=== PATIENT | male | born 1995 | race Caucasian/White ===

== ENCOUNTER 2016-05-11 21:08 | Emergency (ER) | payer OTHER ==
[~2016-05-11] VITALS: Ht 193 cm; Wt 96.4 kg
[2016-05-11 21:10] VITALS: TEMP 37.3; Ht 193 cm; Wt 96.4 kg
--- NOTE | 2016-05-11 21:22 | EMERGENCY ROOM VISIT NOTE ---
ED Visit Note First contact with patient: 21:14 CHIEF COMPLAINT: Ankle pain HISTORY OF PRESENT ILLNESS: This 21-year-old male patient presents to the emergency department ambulatory after sustaining an injury to the right ankle with a twisting, inversion motion when he was playing basketball earlier today. Complains of marked swelling and pain. The patient complains of pain along the outside of the ankle. The patient does not have pain of the foot. The patient rates the pain as sharp and 6/10. There was and audible pop. The patient is non-able to bear weight on the foot. Constant pain, worse with movement, weight bearing, and the dependent position. No knee pain, the patient is able to move their toes. No numbness or weakness of the foot, no laceration. The patient has not had a previous injury to this ankle. The patient has taken nothing for the pain. The patient denies any other injury. REVIEW OF SYSTEMS: A 6 system review of systems was completed with positives and pertinent negatives listed in the HPI. ALLERGIES: No known allergies MEDICATIONS: None PMH: None SOCIAL HISTORY: The patient is a student PHYSICAL EXAM: Vital Signs: Reviewed Nurse's notes, vital signs stable. GENERAL : This is a 21-year-old male, no acute distress, but appears in pain, well- developed, well-nourished. MENTAL STATUS: Alert, oriented to person place and time, and cooperative. MUSCULOSKELETAL: The right ankle is swollen and tender over the lateral malleolus, but the skin is intact and there is no ligamentous instability. There is no fifth metatarsal tenderness. There is no tenderness over the rest of the foot. There is no calf or tibia/fibular tenderness. There is no visual deformity. The foot and toes are warm and well-perfused. Dorsalis pedis pulse 2+. Sensation to pain and light touch is intact. Capillary refill less than 2 seconds. EMERGENCY DEPARTMENT COURSE: I examined the patient. He declined pain medication. X-rays of the right ankle were reviewed by myself and read by radiology and reveal avulsion fracture to the distal fibula. A posterior short leg Ortho-Glass splint was applied to the ankle under my direction and the position was satisfactory. Neurovascular status was rechecked and intact. The patient was instructed on the use of crutches, stating he has his own. He should contact orthopedics tomorrow to schedule a follow-up appointment for further evaluation and management. He should return to the ER with any worsening symptoms. The patient was discharged home in good condition. RIGHT ANKLE MIN 3 VIEWS ROUTINE CLINICAL HISTORY: right ankle pain Right pain COMPARISON: None. DISCUSSION: Tiny avulsion adjacent to the tip of the distal fibula. This is reasonably well corticated and may be old. Lateral soft tissue swelling. Ankle mortise is aligned appropriately. Subtalar joint is intact. Lead IMPRESSION: Soft tissue edema over the lateral malleolus. Small avulsion inferior to the tip of the distal fibula felt to be old Current/Historical Medications Scheduled Multivitamin (Multivitamin), 1 TAB PO DAILY Allergies Coded Allergies: No Known Allergies (Unverified , 05/11/16) Vital Signs Date Time Temp Pulse Resp B/P Pulse Ox O2 Delivery O2 Flow Rate FiO2 05/11/16 22:50 75 18 180/73 96 05/11/16 21:10 37.3 104 18 149/77 91 Room Air Departure Information Impression Primary Impression: Fracture of distal end of right fibula Additional Impression: Ankle sprain Dispostion Home / Self-Care Condition GOOD Referrals No Doctor, Assigned (PCP) Harris Kan M.D. Patient Instructions [facility] [place] Additional Instructions Ibuprofen 600 mg every 6-8 hours or moderate pain Wear the splint until seen by orthopedics, do neck the splint wet Crutches and do not bear weight on the right leg until seen by orthopedics Contact orthopedics first thing in the morning to schedule a follow-up appointment for further evaluation and management Return with any worsening symptoms Problem Qualifiers Primary Impression: Fracture of distal end of right fibula Encounter type: initial encounter Fracture type: closed Additional Impression: Ankle sprain Encounter type: initial encounter Laterality: right
[2016-05-11] MEDS ORDERED: MULT-506 PO (21:41)
--- NOTE | 2016-05-11 21:44 | DIAGNOSTIC IMAGING REPORT ---
RIGHT ANKLE MIN 3 VIEWS ROUTINE CLINICAL HISTORY: right ankle pain Right pain COMPARISON: None. DISCUSSION: Tiny avulsion adjacent to the tip of the distal fibula. This is reasonably well corticated and may be old. Lateral soft tissue swelling. Ankle mortise is aligned appropriately. Subtalar joint is intact. Lead IMPRESSION: Soft tissue edema over the lateral malleolus. Small avulsion inferior to the tip of the distal fibula felt to be old Electronically signed by: Eron Lee M.D. 05/11/2016 9:42 PM Dictated Date/Time: 05/11/2016 9:41 PM
[2016-05-11 22:50] VITALS: BP 180/73; PULSE 75; O2SAT 96
== END 2016-05-11 22:50 | disposition home or self-care (01) ==
LOC: C.EDB 21:09 → C.EDD 22:50
DX: S93.401A Sprain of unspecified ligament of right ankle, initial encounter (principal); S89.301A Unspecified physeal fracture of lower end of right fibula, initial encounter for closed fracture; X58.XXXA Exposure to other specified factors, initial encounter; Y93.67 Activity, basketball